=== PATIENT | female | born 1950 | race Caucasian/White ===

== ENCOUNTER 2020-04-06 10:06 | Outpatient (RCR) | payer MEDICARE, SELFPAY ==
[2013-06-12 19:38] VITALS: BMI 20.3
== END 2020-04-06 23:59 ==
LOC: IMMUN 10:06
PROVIDERS: PCP Internal Medicine; Referring Provider Family Medicine; Visit Provider Family Medicine
DX: Z23 Encounter for immunization (principal)
CPT/HCPCS: 0011A; 0012A; 91301

== ENCOUNTER 2021-07-11 06:11 | Emergency (ER) | payer MEDICARE, SELFPAY ==
[2021-07-11 06:12] VITALS: BP 141/87; PULSE 81; RESP 18; TEMP 36.6; O2SAT 98; BMI 20.2
--- NOTE | 2021-07-11 06:25 | RAD_ITS ---
STUDY: X-RAY - LEFT FEMUR REASON FOR STUDY: Female, 71 years old. pain TECHNIQUE: 4 view(s) of the femur. COMPARISON: None. FINDINGS: Normal visualized femur. Normal visualized soft tissue structure. RAD/Femur Min 2 Views IMPRESSION: Normal x-ray examination of the femur. Electronically Signed: Christian Schaefer DO at 6:51 EDT ,
--- NOTE | 2021-07-11 06:25 | VDLE_ITS ---
Reason For Study: pain Procedure LEFT This is a venous duplex using B-mode, color GSV is normal. flow and spectral Doppler. CFV is compressible, spontaneous, phasic, Exam performed portable in ED. competent, and demonstrates normal The exam was abbreviated due to the COVID 19 augmentation. protocol. FV is compressible, spontaneous, phasic, The exam was diagnostic. competent and demonstrates normal A preliminary report was called and/or faxed augmentation. to the ED physician. POP V is compressible, spontaneous, phasic, competent and demonstrates normal augmentation. T/P Trunk is compressible. PTV is compressible. LT PerV is compressible. VL/Venous Duplex US, Unilateral Interpretation Summary There is no evidence of left lower extremity deep vein thrombosis. Left great s aphenous vein appears patent and compressible segmentally. Abbreviated COVID-19 protocol utilized Ordering Physician: Gold Hooper Performed By: Harvey Mercedes RVT
--- NOTE | 2021-07-11 06:27 | EX.ED.DYSGE1 ---
HPI <Dr. Gold Hooper MD - Last Filed: 07/11/21 06:32> History of Present Illness Chief Complaint: Lower Extremity Injury Informant: patient Narrative Narrative: Patient presents with left leg pain. She had stated a few days but her states its been going on longer than that. She states at the beginning she did have a little soreness in her back but it is completely gone now. She describes it as a constant ache or throbbing. It is occurs mostly in her left groin and down the middle of her left thigh. If she rubs that area a lot she will get some pain in the lower lozoya but generally it is in the upper leg. She has not noticed any rash. No swelling. She has no recent travel or surgery or immobilization or history of DVT. She states is worse if she tries to sit. It is a little bit better but still present if she gets up and walks around. She has had sciatica on the right side years ago and states this feels very different. She did have back surgery for sciatica years ago. She also had a right hip fracture and replacement about 8 years ago. She denies any recent trauma or injury. No fevers or chills. Patient is overall healthy. No medications. No allergies Surgeries as above Lives with and non-smoker [facility] <Dr. Gold Hooper MD - Last Filed: 07/11/21 06:32> [facility] Home Medications No Known/Unobtainable [No Known Home Medications] 06/12/13 [History Last Taken Unknown] Allergy/AdvReac Type Severity Reaction Status Date / Time No Known Allergies Allergy Verified 07/11/21 06:16 Surgical History Hip joint replacement status Social History Smoking Status: Never smoker ROS <Dr. Gold Hooper MD - Last Filed: 07/11/21 06:32> ROS ED Constitutional Constitutional ED: Denies chills or fever(s) ENT ENT ED: Denies rhinorrhea Cardiovascular Cardiovascular: Denies chest pain Respiratory/Chest Respiratory/Chest: Denies cough or dyspnea Gastrointestinal Gastrointestinal: Denies abdominal pain, diarrhea, nausea or vomiting Genitourinary Genitourinary ED: Denies dysuria, hematuria or urinary frequency Musculoskeletal Musculoskeletal: Reports other Details: See history of present illness. Integumentary Denies rash Neurologic Neurologic: Reports other Details: She states she has the pain in her leg but is never gotten numbness and has no indication of weakness at all. ; Denies paresthesias or weakness Endocrine Endocrinology: Denies polydipsia or polyuria Allergic/Immunologic Allergic/Immunologic ED: Denies urticaria EXAM <Dr. Gold Hooper MD - Last Filed: 07/11/21 06:32> Physical Exam Const Vital Signs: 07/11/21 06:12 Temperature 97.8 F Temperature Source Temporal Pulse Rate 81 Respiratory Rate 18 Blood Pressure 141/87 H Blood Pressure Mean 105 Pulse Ox 98 Oxygen Delivery Method Room Air Positive well nourished and well developed General Appearance ED: well developed and NAD HEENT Reports moist mucous membranes Negative for trauma Eyes General Eye ED: Negative for pale conjunctiva or scleral icterus Neck no JVD Chest Wall inspection of chest normal Resp normal respiratory effort and clear to auscultation bilaterally Cardio regular rate GI normal to inspection, nondistended, normoactive bowel sounds and non-tender Palpation: soft Back/Spine no CVA tenderness Back/Spine Narrative: No paraspinal or lumbar tenderness. No tenderness of sciatic notch. Extremity normal to inspection Extremity Narrative: Left leg shows no rash swelling or erythema. No limitation of range of motion. Its not actually tender on exam. There is no tenderness along the deep venous system. No distended veins. No asymmetry with the other side. General Extremety ED: Negative for edema or tenderness General Extremity: Negative for edema Neuro oriented x3 and no sensory deficits noted Sensorium / Orientation: alert Motor Exam: strength 5/5 throughout Psych mental status grossly normal Skin no rashes or lesions noted and no wounds <Dr. Juaquin Phillips DO - Last Filed: 07/11/21 08:33> Physical Exam Const Vital Signs: 07/11/21 06:12 Temperature 97.8 F Temperature Source Temporal Pulse Rate 81 Respiratory Rate 18 Blood Pressure 141/87 H Blood Pressure Mean 105 Pulse Ox 98 Oxygen Delivery Method Room Air MDM <Dr. Gold Hooper MD - Last Filed: 07/11/21 06:32> MDM MDM Narrative Medical decision making narrative: We will check x-ray of the femur. Most of her pain is deep and in that portion of the leg. I will also do an ultrasound. This may be sciatica but she states it feels quite different than what she had on the right. She is also not currently having any back pain. There is no neurologic deficit. If the above studies are negative, I think she can go home with rest and meds for pain. She has tried Tylenol without significant relief. She tried a heating pad also. Radiography Diagnostic Testing: Clinical Impression(s) from Imaging Studies Femur X-Ray 07/11/21 06:25 IMPRESSION: Normal x-ray examination of the femur. Electronically Signed: Christian Schaefer DO at 6:51 EDT , <Dr. Juaquin Phillips, - Last Filed: 07/11/21 08:33> [facility] MDM Narrative Medical decision making narrative: Patient signed out to me to follow-up on ultrasound studies. 2 view femur x-rays reviewed by myself and read by radiology shows no acute process. DVT ultrasound left lower extremity also negative. Patient reports intermittent symptoms anterior thigh occasionally down her leg. Transient back pain a week ago. Discussed possibility of sciatica however she has no difficulty walking. She will use additional NSAID products as needed. I discussed monitoring for any rash for potential shingles for which she reported skin sensations. She will follow-up with her PCP for reevaluation and further testing as needed. All questions were answered. Radiography Diagnostic Testing: Clinical Impression(s) from Imaging Studies Femur X-Ray 07/11/21 06:25 IMPRESSION: Normal x-ray examination of the femur. Electronically Signed: Christian Schaefer DO at 6:51 EDT , Discharge Plan Triage Chief Complaint: Lower Extremity Injury ED Provider: Gold Hooper Dx/Rx/DC Orders Clinical Impression: Left thigh pain Instructions: ED Pain, Acute, Uncertain Cause Prescriptions: No Action No Known Home Medications RF: 0 Primary Care Provider: Care Physician,No Primary Referrals: Familia Holcomb MD [NON-STAFF] - 3-5 Days Activity Restrictions/Additional Instructions: X-ray her femur negative for fracture or acute process. Left lower extremity ultrasound negative for DVT. Monitor for any rashes that may break out on the skin. May use Advil or ibuprofen up to 600 mg every 6 hours to help more with symptoms. Follow-up with your doctor for reevaluation and further testing as an outpatient. Disposition Disposition: Home, Self Care Discharge Date/Time: 07/11/21 08:30
== END 2021-07-11 08:30 | disposition home or self-care (01) ==
PROVIDERS: Emergency Provider Emergency Medicine; Visit Provider Emergency Medicine
DX: M79.605 Pain in left leg (principal); Z96.641 Presence of right artificial hip joint
CPT/HCPCS: 73552; 93971; 99282

== ENCOUNTER 2024-12-03 22:05 | Emergency (ER) | payer MEDICARE, SELFPAY ==
[2024-12-03 22:05] VITALS: BP 143/77; PULSE 80; RESP 18; TEMP 36.7; O2SAT 98
[2024-12-03 22:08] VITALS: BMI 20.9
[2024-12-03 23:48] VITALS: BP 136/70; PULSE 75; RESP 16; TEMP 36.6; O2SAT 98
== END 2024-12-03 23:49 | disposition home or self-care (01) ==
PROVIDERS: Emergency Provider Emergency Medicine; PCP Student in an Organized Health Care Education/Training Program; Visit Provider Emergency Medicine
DX: S93.401A Sprain of unspecified ligament of right ankle, initial encounter (principal); Z79.899 Other long term (current) drug therapy; X58.XXXA Exposure to other specified factors, initial encounter
CPT/HCPCS: 73610; 73630; 99283